=== PATIENT | male | born 1960 | race Caucasian/White ===

== ENCOUNTER → 2017-03-08 | Outpatient (CLI) | payer MEDICARE, MEDICAID ==
[~2017-03-08] MED LIST: BENZ1TAB10 PO; BUDE10.2 IH; HALO10 PO; OLOP15OS OU; OMEP20 PO; RISP2 PO; TIOT185 IH; TRAZ-144 PO
== END | disposition home or self-care (01) ==
LOC: RADPV 08:50
PROVIDERS: ATTEND Internal Medicine Cardiovascular Disease
DX: I07.1 Rheumatic tricuspid insufficiency (principal)
CPT/HCPCS: 93306

== ENCOUNTER 2018-09-20 19:10 | Inpatient (IN) | payer MEDICARE, MEDICAID ==
[~2018-09-20] VITALS: Ht 170.2 cm; Wt 62.0 kg
[~2018-09-20 19:10] MED LIST changes: -TRAZ-144 PO; +TRAZ-219 PO
[2018-09-20 20:42] LABS: BASOPHILS % (AUTO) 0.5 % (0.0-2.0); EOSINOPHILS % (AUTO) 0.3 % (1.0-6.0); HEMATOCRIT 47.1 % (41-53); HEMOGLOBIN 16.3 g/dL (13.5-17.5); LYMPHOCYTES # (AUTO) 1.8 K/uL (1.0-4.8); LYMPHOCYTES % (AUTO) 8.9 % (22.0-44.0); MEAN CORPUSCULAR HEMOGLOBIN 31.4 pg (26.0-34.0); MEAN CORPUSCULAR HGB CONC 34.7 G/dL (31.0-37.0); MEAN CORPUSCULAR VOLUME 91 fL (80-100); MONOCYTES # (AUTO) 1.6 K/uL (0.1-1.0); MONOCYTES % (AUTO) 8.1 % (2.0-9.0); NEUTROPHILS # (AUTO) 16.4 K/uL (1.8-7.7); NEUTROPHILS % (AUTO) 82.2 % (40.0-70.0); PLATELET COUNT (AUTO) 264 K/uL (150-450); RED BLOOD CELL COUNT(AUTO) 5.21 MIL/uL (4.50-5.90); RED CELL DISTRIBUTION WIDTH 12.9 % (11.5-14.5)
[2018-09-20 20:55] LABS: INR 1.1 (0.9-1.1); PROTHROMBIN TIME 11.8 SEC (9.4-11.6)
[2018-09-20 21:00] LABS: CALCIUM, TOTAL 10.1 mg/dL (8.8-10.5); CREATININE 1.27 mg/dL (0.60-1.30); POTASSIUM 3.9 mmol/L (3.5-5.1)
[2018-09-20] MEDS ORDERED: IPRATROPIUM BROMIDE 0.5 MG/2.5 ML NEB SOLUTION NEB ONE (21:15)
[2018-09-20] MEDS ORDERED: ONDANSETRON HCL 4 MG/2 ML VIAL IVP ONE (21:15)
[2018-09-20] MEDS ORDERED: GuaiFENesin/D-METHORPHAN [SUGAR-FREE] 200-20MG/10 ML SYRUP UDCUP PO ONE (21:15)
[2018-09-20] MEDS ORDERED: ALBUTEROL SULFATE 2.5 MG/0.5 ML NEB SOLUTION NEB ONE (21:15)
[2018-09-20 21:25] LABS: BILIRUBIN,TOTAL 1.1 mg/dL (0.1-1.0); TOTAL PROTEIN, SERUM 7.7 g/dL (6.4-8.2)
[2018-09-20 21:39] LABS: INFLUENZA TYPE A NEGATIVE FOR TYPE A (NEGATIVE); INFLUENZA TYPE B NEGATIVE FOR TYPE B (NEGATIVE)
[2018-09-20] MEDS ORDERED: HALO10 PO (21:41)
[2018-09-20] MEDS ORDERED: OMEP20 PO (21:41)
[2018-09-20] MEDS ORDERED: LORA0.5T2 PO (21:41)
[2018-09-20] MEDS ORDERED: RISP3 PO (21:41)
[2018-09-20] MEDS ORDERED: BENZ1TAB10 PO (21:41)
[2018-09-20] MEDS ORDERED: TRAZ-219 PO (21:41)
[2018-09-20] MEDS ORDERED: ALBUTEROL SULFATE 2.5 MG/0.5 ML NEB SOLUTION NEB PRN (22:30)
[2018-09-20] MEDS ORDERED: AZITHROMYCIN 500 MG/NS 250 ML IV ONE (22:30)
[2018-09-20] MEDS ORDERED: ONDANSETRON HCL 4 MG/2 ML VIAL IVP PRN ×2 (22:30)
[2018-09-20] MEDS ORDERED: BISACODYL 10 MG RECTAL RECTAL SUPPOSITORY PR PRN (22:30)
[2018-09-20] MEDS ORDERED: 0.9% SODIUM CHLORIDE 10 ML SYRINGE IVP PRN (22:30)
[2018-09-20] MEDS ORDERED: ACETAMINOPHEN 325 MG TABLET PO PRN ×2 (22:30)
[2018-09-20] MEDS ORDERED: LORazepam 0.5 MG TABLET PO PRN (22:30)
[2018-09-20] MEDS ORDERED: MAGNESIUM HYDROXIDE SUSPENSION 30 ML UDCUP PO PRN (22:30)
[2018-09-20] MEDS ORDERED: CefTRIAXone 1 GM/DEXTROSE 50 ML IV ONE (22:30)
[2018-09-20] MEDS ORDERED: POTASSIUM CHL 20 MEQ/D5-0.45NS 1,000 ML IV ONE (22:30)
[2018-09-20] MEDS ORDERED: IPRATROPIUM BROMIDE 0.5 MG/2.5 ML NEB SOLUTION NEB PRN (22:30)
[2018-09-20] MEDS ORDERED: ALBUTEROL SULFATE 2.5 MG/0.5 ML NEB SOLUTION NEB SCH (23:00)
[2018-09-20] MEDS ORDERED: IPRATROPIUM BROMIDE 0.5 MG/2.5 ML NEB SOLUTION NEB SCH (23:00)
[2018-09-21 00:08] VITALS: BP 132/67
[2018-09-21 04:35] VITALS: BP 129/75
[2018-09-21] MEDS ORDERED: PNEUMOCOCCAL VACCINE POLYVALENT 0.5 ML VIAL [PPSV23] IM ONE (06:30)
[2018-09-21 07:44] LABS: BASOPHILS % (AUTO) 0.9 % (0.0-2.0); EOSINOPHILS % (AUTO) 0.6 % (1.0-6.0); HEMATOCRIT 43.5 % (41-53); HEMOGLOBIN 14.8 g/dL (13.5-17.5); LYMPHOCYTES % (AUTO) 12.2 % (22.0-44.0); MEAN CORPUSCULAR HEMOGLOBIN 31.5 pg (26.0-34.0); MEAN CORPUSCULAR HGB CONC 34.1 G/dL (31.0-37.0); MEAN CORPUSCULAR VOLUME 92 fL (80-100); MONOCYTES # (AUTO) 1.5 K/uL (0.1-1.0); MONOCYTES % (AUTO) 9.6 % (2.0-9.0); NEUTROPHILS # (AUTO) 12.3 K/uL (1.8-7.7); NEUTROPHILS % (AUTO) 76.7 % (40.0-70.0); PLATELET COUNT (AUTO) 206 K/uL (150-450); RED BLOOD CELL COUNT(AUTO) 4.71 MIL/uL (4.50-5.90)
[2018-09-21 08:07] VITALS: BP 119/76
[2018-09-21 08:08] LABS: HEMOGLOBIN A1C 5.6 % (4.5-6.2)
[2018-09-21] MEDS: OMEPRAZOLE 20 MG CAPSULE PO SCH (08:34)
[2018-09-21] MEDS: ENOXAPARIN SODIUM 40 MG/0.4 ML PF SYRINGE SQ SCH (08:35)
[2018-09-21 09:28] LABS: ALANINE AMINOTRANSFERASE 19 U/L (12-78); ALBUMIN 3.4 g/dL (3.4-5.0); ALKALINE PHOSPHATASE 84 U/L (46-116); ANION GAP 9 mmol/L (8-16); ASPARTATE AMINOTRANSFERASE 16 U/L (15-37); BILIRUBIN,TOTAL 0.7 mg/dL (0.1-1.0); CALCIUM, TOTAL 8.9 mg/dL (8.8-10.5); CARBON DIOXIDE 30 mmol/L (22-29); CHLORIDE 99 mmol/L (98-107); CHOL/HDL RATIO 2.9 (4.2-7.3); CHOLESTEROL 122 mg/dL (131-200); CREATINE KINASE, TOTAL ONLY 94 U/L (39-308); CREATININE 0.93 mg/dL (0.60-1.30); FREE T4 (FREE THYROXINE) 0.95 ng/dL (0.76-1.46); GLOMERULAR FILTR. RATE CALC > 60 mL/min (>60); GLUCOSE,RANDOM 133 mg/dL (70-110); HDL CHOLESTEROL 42 mg/dL (40-60); LDL CHOL (CALC.) 62 mg/dL (0-130); POTASSIUM 3.8 mmol/L (3.5-5.1); SODIUM SERUM 138 mmol/L (136-145); TOTAL PROTEIN, SERUM 6.8 g/dL (6.4-8.2); TRIGLYCERIDES 88 mg/dL (15-150); UREA NITROGEN, BLOOD 24 mg/dL (7-18)
[2018-09-21] MEDS: TraZODone HCL 50 MG TABLET PO SCH (11:22)
[2018-09-21] MEDS: HALOPERIDOL 10 MG TABLET PO SCH (11:22)
[2018-09-21] MEDS: RisperiDONE 3 MG TABLET PO SCH (11:22)
[2018-09-21 11:28] VITALS: BP 119/74
[2018-09-21 16:00] VITALS: BP 124/64
[2018-09-21 19:59] VITALS: BP 93/61
[2018-09-21] MEDS: BENZTROPINE MESYLATE 1 MG TABLET PO SCH (20:09)
[2018-09-21] MEDS: CefTRIAXone 1 GM/DEXTROSE 50 ML IV SCH (21:11)
[2018-09-21] MEDS ORDERED: SODIUM CHLORIDE 0.9% 500 ML IV ONE (21:42)
[2018-09-21] MEDS: AZITHROMYCIN 500 MG/NS 250 ML IV SCH (22:06)
[2018-09-22] VITALS (7 sets, daily range): BP systolic 102–132; BP diastolic 62–91
[2018-09-22] MEDS: HALOPERIDOL 10 MG TABLET PO SCH (08:29)
[2018-09-22] MEDS: OMEPRAZOLE 20 MG CAPSULE PO SCH (08:29)
[2018-09-22] MEDS: RisperiDONE 3 MG TABLET PO SCH (08:29)
[2018-09-22] MEDS: ENOXAPARIN SODIUM 40 MG/0.4 ML PF SYRINGE SQ SCH (08:30)
[2018-09-22] MEDS: TraZODone HCL 50 MG TABLET PO SCH (08:32)
[2018-09-22 09:29] LABS: BASOPHILS % (AUTO) 0.7 % (0.0-2.0); EOSINOPHILS % (AUTO) 2.2 % (1.0-6.0); HEMATOCRIT 39.6 % (41-53); HEMOGLOBIN 13.6 g/dL (13.5-17.5); LYMPHOCYTES # (AUTO) 1.6 K/uL (1.0-4.8); LYMPHOCYTES % (AUTO) 17.8 % (22.0-44.0); MEAN CORPUSCULAR HEMOGLOBIN 31.6 pg (26.0-34.0); MEAN CORPUSCULAR HGB CONC 34.3 G/dL (31.0-37.0); MEAN CORPUSCULAR VOLUME 92 fL (80-100); MONOCYTES # (AUTO) 0.6 K/uL (0.1-1.0); MONOCYTES % (AUTO) 7.1 % (2.0-9.0); NEUTROPHILS # (AUTO) 6.6 K/uL (1.8-7.7); NEUTROPHILS % (AUTO) 72.2 % (40.0-70.0); PLATELET COUNT (AUTO) 171 K/uL (150-450); RED BLOOD CELL COUNT(AUTO) 4.29 MIL/uL (4.50-5.90); RED CELL DISTRIBUTION WIDTH 12.8 % (11.5-14.5)
[2018-09-22 09:43] LABS: ANION GAP 8 mmol/L (8-16); CALCIUM, TOTAL 9.3 mg/dL (8.8-10.5); CARBON DIOXIDE 29 mmol/L (22-29); CHLORIDE 101 mmol/L (98-107); CREATININE 0.82 mg/dL (0.60-1.30); GLOMERULAR FILTR. RATE CALC > 60 mL/min (>60); GLUCOSE,RANDOM 138 mg/dL (70-110); POTASSIUM 3.2 mmol/L (3.5-5.1); SODIUM SERUM 138 mmol/L (136-145); UREA NITROGEN, BLOOD 18 mg/dL (7-18)
[2018-09-22] MEDS ORDERED: POTASSIUM CHL 10 MEQ/WATER 50 ML IV PRN (11:00)
[2018-09-22] MEDS: POTASSIUM CHLORIDE 20 MEQ ER TABLET PO PRN (14:19)
[2018-09-22] MEDS ORDERED: 0.9% SODIUM CHLORIDE 5 ML NEB SOLUTION NEB ONE ×2 (15:22→15:43)
[2018-09-22] MEDS: AMINO ACIDS/PROTEIN HYDROLYS 30 ML TUBE PO SCH (18:00)
[2018-09-22] MEDS: CefTRIAXone 1 GM/DEXTROSE 50 ML IV SCH (21:41)
[2018-09-22] MEDS: BENZTROPINE MESYLATE 1 MG TABLET PO SCH (21:43)
[2018-09-22] MEDS: AZITHROMYCIN 500 MG/NS 250 ML IV SCH (22:50)
[2018-09-23] MEDS: POTASSIUM CHLORIDE 20 MEQ ER TABLET PO PRN (00:20)
[2018-09-23 04:17] VITALS: BP 123/76
[2018-09-23] MEDS: AMINO ACIDS/PROTEIN HYDROLYS 30 ML TUBE PO SCH ×2 (08:00→18:00)
[2018-09-23 08:09] VITALS: BP 127/76
[2018-09-23] MEDS: OMEPRAZOLE 20 MG CAPSULE PO SCH (08:28)
[2018-09-23] MEDS: TraZODone HCL 50 MG TABLET PO SCH (08:28)
[2018-09-23] MEDS: RisperiDONE 3 MG TABLET PO SCH (08:28)
[2018-09-23] MEDS: HALOPERIDOL 10 MG TABLET PO SCH (08:28)
[2018-09-23] MEDS: ENOXAPARIN SODIUM 40 MG/0.4 ML PF SYRINGE SQ SCH (08:29)
[2018-09-23 08:42] LABS: BASOPHILS % (AUTO) 0.9 % (0.0-2.0); EOSINOPHILS % (AUTO) 3.3 % (1.0-6.0); HEMATOCRIT 37.2 % (41-53); HEMOGLOBIN 12.9 g/dL (13.5-17.5); LYMPHOCYTES # (AUTO) 1.3 K/uL (1.0-4.8); LYMPHOCYTES % (AUTO) 19.3 % (22.0-44.0); MEAN CORPUSCULAR HEMOGLOBIN 32.1 pg (26.0-34.0); MEAN CORPUSCULAR HGB CONC 34.6 G/dL (31.0-37.0); MEAN CORPUSCULAR VOLUME 93 fL (80-100); MONOCYTES # (AUTO) 0.5 K/uL (0.1-1.0); MONOCYTES % (AUTO) 7.1 % (2.0-9.0); NEUTROPHILS # (AUTO) 4.7 K/uL (1.8-7.7); NEUTROPHILS % (AUTO) 69.4 % (40.0-70.0); PLATELET COUNT (AUTO) 165 K/uL (150-450); RED BLOOD CELL COUNT(AUTO) 4.01 MIL/uL (4.50-5.90); RED CELL DISTRIBUTION WIDTH 12.7 % (11.5-14.5)
[2018-09-23 08:50] LABS: ANION GAP 7 mmol/L (8-16); CALCIUM, TOTAL 8.8 mg/dL (8.8-10.5); CARBON DIOXIDE 27 mmol/L (22-29); CHLORIDE 105 mmol/L (98-107); CREATININE 0.65 mg/dL (0.60-1.30); GLOMERULAR FILTR. RATE CALC > 60 mL/min (>60); GLUCOSE,RANDOM 103 mg/dL (70-110); POTASSIUM 3.6 mmol/L (3.5-5.1); SODIUM SERUM 139 mmol/L (136-145); UREA NITROGEN, BLOOD 15 mg/dL (7-18)
[2018-09-23 11:22] VITALS: BP 118/80
[2018-09-23 15:44] VITALS: BP 133/88
[2018-09-23 20:11] VITALS: BP 146/94
[2018-09-23] MEDS: CefTRIAXone 1 GM/DEXTROSE 50 ML IV SCH (21:06)
[2018-09-23] MEDS: AZITHROMYCIN 500 MG/NS 250 ML IV SCH (21:06)
[2018-09-23] MEDS: BENZTROPINE MESYLATE 1 MG TABLET PO SCH (21:06)
[2018-09-23 23:42] VITALS: BP 135/87
[2018-09-24 04:00] VITALS: BP 137/92
[2018-09-24] MEDS: AMINO ACIDS/PROTEIN HYDROLYS 30 ML TUBE PO SCH ×2 (08:00→18:00)
[2018-09-24] MEDS: ENOXAPARIN SODIUM 40 MG/0.4 ML PF SYRINGE SQ SCH (08:06)
[2018-09-24] MEDS: RisperiDONE 3 MG TABLET PO SCH (08:06)
[2018-09-24] MEDS: HALOPERIDOL 10 MG TABLET PO SCH (08:06)
[2018-09-24] MEDS: OMEPRAZOLE 20 MG CAPSULE PO SCH (08:06)
[2018-09-24] MEDS: TraZODone HCL 50 MG TABLET PO SCH (08:07)
[2018-09-24 08:09] VITALS: BP 139/87
[2018-09-24] MEDS ORDERED: LEVO500 PO (10:23)
[2018-09-24] MEDS ORDERED: LEVO500P13 IV (10:23)
[2018-09-24 12:11] VITALS: BP 122/86
[2018-09-24 16:30] VITALS: BP 123/88
== END 2018-09-24 19:40 | disposition home or self-care (01) | DRG 871 ==
LOC: EMS 19:11 → 6N 22:54
PROVIDERS: ADMIT Internal Medicine Geriatric Medicine; ATTEND Internal Medicine Geriatric Medicine
DX: A41.9 Sepsis, unspecified organism (principal); J18.0 Bronchopneumonia, unspecified organism; J44.0 Chronic obstructive pulmonary disease with (acute) lower respiratory infection; K21.9 Gastro-esophageal reflux disease without esophagitis; B19.20 Unspecified viral hepatitis C without hepatic coma; F32.9 Major depressive disorder, single episode, unspecified; E87.6 Hypokalemia; D64.9 Anemia, unspecified; R91.1 Solitary pulmonary nodule; I70.0 Atherosclerosis of aorta; Z79.899 Other long term (current) drug therapy; Z82.49 Family history of ischemic heart disease and other diseases of the circulatory system; Z87.891 Personal history of nicotine dependence; F25.9 Schizoaffective disorder, unspecified
CPT/HCPCS: 71250; 80074; 83036; 83605; 83735; 84132; 84145; 84439; 84443; 85379; 87040; 87070; 87804; 90686; 90732; 93005; 93306; 93970; 94640; 96365; 96368; 96375; G0378; J0456; J0696; J1650; J2405; J3480; J7040

== ENCOUNTER 2019-07-17 17:40 | Inpatient (IN) | payer MEDICARE, MEDICAID ==
[~2019-07-17] VITALS: Ht 170.2 cm; Wt 51.3 kg
[~2019-07-17 17:40] MED LIST changes: -BUDE10.2 IH; +LORA-999 PO; -OLOP15OS OU; -RISP2 PO; +RISP3 PO; -TIOT185 IH; -TRAZ-219 PO; +TRAZ-252 PO
[2019-07-17] MEDS ORDERED: HALOPERIDOL 5 MG TABLET PO PRN (19:15)
[2019-07-17] MEDS ORDERED: ZOLPIDEM TARTRATE 10 MG TABLET PO PRN (19:15)
[2019-07-17] MEDS ORDERED: LORazepam 2 MG TABLET PO PRN (19:15)
[2019-07-17 19:35] LABS: ANION GAP 7 mmol/L (8-16); CALCIUM, TOTAL 8.8 mg/dL (8.8-10.5); CARBON DIOXIDE 28 mmol/L (22-29); CHLORIDE 103 mmol/L (98-107); CREATININE 0.77 mg/dL (0.60-1.30); GLOMERULAR FILTR. RATE CALC > 60 mL/min (>60); GLUCOSE,RANDOM 112 mg/dL (70-110); POTASSIUM 4.4 mmol/L (3.5-5.1); SODIUM SERUM 138 mmol/L (136-145); UREA NITROGEN, BLOOD 25 mg/dL (7-18)
[2019-07-17 19:37] LABS: BASOPHILS % (AUTO) 0.8 % (0.0-2.0); EOSINOPHILS % (AUTO) 4.7 % (1.0-6.0); HEMATOCRIT 43.8 % (41-53); HEMOGLOBIN 14.9 g/dL (13.5-17.5); LYMPHOCYTES # (AUTO) 1.8 K/uL (1.0-4.8); LYMPHOCYTES % (AUTO) 23.8 % (22.0-44.0); MEAN CORPUSCULAR HEMOGLOBIN 31.4 pg (26.0-34.0); MEAN CORPUSCULAR VOLUME 92 fL (80-100); MONOCYTES # (AUTO) 0.6 K/uL (0.1-1.0); MONOCYTES % (AUTO) 7.9 % (2.0-9.0); NEUTROPHILS # (AUTO) 4.7 K/uL (1.8-7.7); NEUTROPHILS % (AUTO) 62.8 % (40.0-70.0); RED BLOOD CELL COUNT(AUTO) 4.75 MIL/uL (4.50-5.90); RED CELL DISTRIBUTION WIDTH 13.3 % (11.5-14.5)
[2019-07-17 19:42] LABS: ALANINE AMINOTRANSFERASE 18 U/L (12-78); ALBUMIN 3.2 g/dL (3.4-5.0); ALKALINE PHOSPHATASE 108 U/L (46-116); ASPARTATE AMINOTRANSFERASE 14 U/L (15-37); BILIRUBIN,TOTAL 0.3 mg/dL (0.1-1.0); TOTAL PROTEIN, SERUM 6.7 g/dL (6.4-8.2)
[2019-07-17 20:27] LABS: PLATELET COUNT (AUTO) 173 K/uL (150-450); PLATELET MORPHOLOGY COMMENT NORMAL
[2019-07-17 21:35] VITALS: BP 94/61
[2019-07-17] MEDS ORDERED: ACETAMINOPHEN 325 MG TABLET PO PRN (22:15)
[2019-07-17] MEDS ORDERED: INFLUENZA VIRUS VACCINE QVS 2019-20 (3YR+)/PF 60 MCG/0.5 ML SYRINGE IM ONE (23:45)
[2019-07-18] MEDS: OMEPRAZOLE 20 MG CAPSULE PO SCH (08:10)
[2019-07-18 08:29] LABS: CHOL/HDL RATIO 3.1 (4.2-7.3)
[2019-07-18 08:40] VITALS: BP 122/79
[2019-07-18] MEDS: MULTIVITAMINS, THERAPEUTIC TABLET PO SCH (13:51)
[2019-07-18 17:39] VITALS: BP 145/100
[2019-07-18] MEDS: SERTRALINE HCL 50 MG TABLET PO SCH (20:32)
[2019-07-18] MEDS: RisperiDONE 1 MG TABLET PO SCH (20:33)
[2019-07-19 01:15] VITALS: BP 96/65
[2019-07-19 06:59] LABS: HEMOGLOBIN A1C 5.4 % (4.5-6.2)
[2019-07-19 07:24] LABS: MAGNESIUM 1.9 mg/dL (1.80-2.40)
[2019-07-19] MEDS: MULTIVITAMINS, THERAPEUTIC TABLET PO SCH (08:08)
[2019-07-19] MEDS: OMEPRAZOLE 20 MG CAPSULE PO SCH (08:08)
[2019-07-19 08:33] VITALS: BP 106/69
[2019-07-19 19:10] VITALS: BP 127/84
[2019-07-19] MEDS: RisperiDONE 1 MG TABLET PO SCH (20:41)
[2019-07-19] MEDS: SERTRALINE HCL 50 MG TABLET PO SCH (20:41)
[2019-07-20 04:09] VITALS: BP 109/66
[2019-07-20 09:00] VITALS: BP 122/74
[2019-07-20] MEDS: OMEPRAZOLE 20 MG CAPSULE PO SCH (09:20)
[2019-07-20] MEDS: MULTIVITAMINS, THERAPEUTIC TABLET PO SCH (09:20)
[2019-07-20 16:06] VITALS: BP 138/96
[2019-07-20] MEDS: RisperiDONE 2 MG TABLET PO SCH (20:23)
[2019-07-20] MEDS: SERTRALINE HCL 50 MG TABLET PO SCH (20:23)
[2019-07-21] MEDS: OMEPRAZOLE 20 MG CAPSULE PO SCH (08:42)
[2019-07-21] MEDS: MULTIVITAMINS, THERAPEUTIC TABLET PO SCH (08:42)
[2019-07-21 09:00] VITALS: BP 118/82
[2019-07-21 17:03] VITALS: BP 111/72
[2019-07-21] MEDS: RisperiDONE 2 MG TABLET PO SCH (20:16)
[2019-07-21] MEDS: SERTRALINE HCL 50 MG TABLET PO SCH (20:16)
[2019-07-22] MEDS: MULTIVITAMINS, THERAPEUTIC TABLET PO SCH (08:17)
[2019-07-22] MEDS: OMEPRAZOLE 20 MG CAPSULE PO SCH (08:18)
[2019-07-22 09:58] VITALS: BP 107/72
[2019-07-22 16:33] VITALS: BP 101/77
[2019-07-22] MEDS: RisperiDONE 2 MG TABLET PO SCH (21:16)
[2019-07-22] MEDS: SERTRALINE HCL 100 MG TABLET PO SCH (21:16)
[2019-07-23 08:15] VITALS: BP 130/73
[2019-07-23] MEDS: MULTIVITAMINS, THERAPEUTIC TABLET PO SCH (08:36)
[2019-07-23] MEDS: OMEPRAZOLE 20 MG CAPSULE PO SCH (08:37)
[2019-07-23] MEDS: SERTRALINE HCL 100 MG TABLET PO SCH (20:42)
[2019-07-23] MEDS: RisperiDONE 2 MG TABLET PO SCH (20:43)
[2019-07-23 21:18] VITALS: BP 123/77
[2019-07-24] MEDS: MULTIVITAMINS, THERAPEUTIC TABLET PO SCH (08:12)
[2019-07-24] MEDS: OMEPRAZOLE 20 MG CAPSULE PO SCH (08:13)
[2019-07-24 10:38] VITALS: BP 122/87
[2019-07-24] MEDS ORDERED: SERT100T12 PO (14:57)
[2019-07-24] MEDS ORDERED: RISP2 PO (14:57)
[2019-07-24] MEDS ORDERED: OMEP10SU2 PO (14:59)
[2019-07-24] MEDS ORDERED: OMEP20TA2 PO (15:02)
[2019-07-24 20:14] VITALS: BP 135/87
[2019-07-24] MEDS: SERTRALINE HCL 100 MG TABLET PO SCH (20:26)
[2019-07-24] MEDS: RisperiDONE 2 MG TABLET PO SCH (20:26)
[2019-07-25] MEDS: MULTIVITAMINS, THERAPEUTIC TABLET PO SCH (08:10)
[2019-07-25] MEDS: OMEPRAZOLE 20 MG CAPSULE PO SCH (08:10)
[2019-07-25 09:03] VITALS: BP 105/55
[2019-07-25 15:50] VITALS: BP 116/70
[2019-07-25] MEDS: SERTRALINE HCL 100 MG TABLET PO SCH (20:39)
[2019-07-25] MEDS: RisperiDONE 2 MG TABLET PO SCH (20:39)
[2019-07-26 01:29] VITALS: BP 109/65
[2019-07-26] MEDS: OMEPRAZOLE 20 MG CAPSULE PO SCH (08:06)
[2019-07-26] MEDS: MULTIVITAMINS, THERAPEUTIC TABLET PO SCH (08:06)
[2019-07-26 12:05] VITALS: BP 132/75
== END 2019-07-26 17:20 | disposition home or self-care (01) | DRG 885 ==
LOC: EMS 17:41 → 3EX 20:00
PROVIDERS: ADMIT Psychiatry & Neurology Psychiatry; ATTEND Psychiatry & Neurology Psychiatry
DX: F20.0 Paranoid schizophrenia (principal); B19.20 Unspecified viral hepatitis C without hepatic coma; F32.9 Major depressive disorder, single episode, unspecified; J44.9 Chronic obstructive pulmonary disease, unspecified; K21.9 Gastro-esophageal reflux disease without esophagitis; Z87.891 Personal history of nicotine dependence
CPT/HCPCS: 71250; 83036; 83735; 84100; 93306; G0378; G0480

== ENCOUNTER 2019-07-30 17:27 | Inpatient (IN) | payer MEDICARE, MEDICAID ==
[~2019-07-30] VITALS: Ht 170.2 cm; Wt 55.6 kg
[~2019-07-30 17:27] MED LIST changes: -BENZ1TAB10 PO; -HALO10 PO; -LORA-999 PO; -OMEP20 PO; +OMEP20TA2 PO; +RISP2 PO; -RISP3 PO; +SERT100T12 PO; -TRAZ-252 PO
[2019-07-30] MEDS ORDERED: HALOPERIDOL 5 MG TABLET PO PRN (18:00)
[2019-07-30] MEDS ORDERED: LORazepam 2 MG TABLET PO PRN (18:00)
[2019-07-30] MEDS ORDERED: ZOLPIDEM TARTRATE 10 MG TABLET PO PRN (18:00)
[2019-07-30] MEDS ORDERED: INFLUENZA VIRUS VACCINE QVS 2019-20 (3YR+)/PF 60 MCG/0.5 ML SYRINGE IM ONE (18:45)
[2019-07-30] MEDS ORDERED: PNEUMOCOCCAL VACCINE POLYVALENT 0.5 ML VIAL [PPSV23] IM ONE (18:45)
[2019-07-30 18:50] VITALS: BP 100/56
[2019-07-31 05:46] VITALS: BP 100/69
[2019-07-31] MEDS: OMEPRAZOLE 20 MG CAPSULE PO SCH (08:37)
[2019-07-31] MEDS: RisperiDONE 3 MG TABLET PO SCH ×2 (08:37→16:50)
[2019-07-31 08:49] LABS: BASOPHILS % (AUTO) 0.6 % (0.0-2.0); EOSINOPHILS % (AUTO) 2.3 % (1.0-6.0); HEMATOCRIT 44.5 % (41-53); HEMOGLOBIN 15.2 g/dL (13.5-17.5); LYMPHOCYTES # (AUTO) 1.3 K/uL (1.0-4.8); LYMPHOCYTES % (AUTO) 23.6 % (22.0-44.0); MEAN CORPUSCULAR HEMOGLOBIN 31.7 pg (26.0-34.0); MEAN CORPUSCULAR HGB CONC 34.2 G/dL (31.0-37.0); MEAN CORPUSCULAR VOLUME 93 fL (80-100); MONOCYTES # (AUTO) 0.3 K/uL (0.1-1.0); MONOCYTES % (AUTO) 5.6 % (2.0-9.0); NEUTROPHILS # (AUTO) 3.7 K/uL (1.8-7.7); NEUTROPHILS % (AUTO) 67.9 % (40.0-70.0); PLATELET COUNT (AUTO) 176 K/uL (150-450); RED CELL DISTRIBUTION WIDTH 13.3 % (11.5-14.5)
[2019-07-31 09:19] LABS: HEMOGLOBIN A1C 5.4 % (4.5-6.2)
[2019-07-31 09:45] LABS: ALANINE AMINOTRANSFERASE 13 U/L (12-78); ALBUMIN 3.7 g/dL (3.4-5.0); ALKALINE PHOSPHATASE 112 U/L (46-116); ANION GAP 6 mmol/L (8-16); ASPARTATE AMINOTRANSFERASE 9 U/L (15-37); BILIRUBIN,TOTAL 0.4 mg/dL (0.1-1.0); CARBON DIOXIDE 31 mmol/L (22-29); CHLORIDE 105 mmol/L (98-107); CHOL/HDL RATIO 3.8 (4.2-7.3); CHOLESTEROL 188 mg/dL (131-200); CREATININE 0.83 mg/dL (0.60-1.30); GLOMERULAR FILTR. RATE CALC > 60 mL/min (>60); GLUCOSE,RANDOM 102 mg/dL (70-110); HDL CHOLESTEROL 50 mg/dL (40-60); LDL CHOL (CALC.) 120 mg/dL (0-130); POTASSIUM 4.2 mmol/L (3.5-5.1); SODIUM SERUM 142 mmol/L (136-145); THYROID STIMULATING HORMONE 3.54 uIU/mL (0.36-3.74); TOTAL PROTEIN, SERUM 7.4 g/dL (6.4-8.2); TRIGLYCERIDES 91 mg/dL (15-150)
[2019-07-31 09:58] LABS: UREA NITROGEN, BLOOD 14 mg/dL (7-18)
[2019-07-31 10:51] VITALS: BP 101/61
[2019-07-31 16:29] VITALS: BP 92/61
[2019-07-31] MEDS: HALOPERIDOL 10 MG TABLET PO SCH (20:16)
[2019-07-31] MEDS: LORazepam 0.5 MG TABLET PO SCH (20:16)
[2019-07-31] MEDS: TraZODone HCL 100 MG TABLET PO SCH (20:16)
[2019-07-31] MEDS: BENZTROPINE MESYLATE 2 MG TABLET PO SCH (20:16)
[2019-08-01 00:19] VITALS: BP 104/79
[2019-08-01 08:21] VITALS: BP 109/62
[2019-08-01] MEDS: BENZTROPINE MESYLATE 2 MG TABLET PO SCH (08:34)
[2019-08-01] MEDS: OMEPRAZOLE 20 MG CAPSULE PO SCH (08:34)
[2019-08-01 16:01] VITALS: BP 110/67
[2019-08-01] MEDS: LORazepam 0.5 MG TABLET PO SCH (20:04)
[2019-08-01] MEDS: RisperiDONE 3 MG TABLET PO SCH (20:04)
[2019-08-01] MEDS: TraZODone HCL 100 MG TABLET PO SCH (20:04)
[2019-08-01] MEDS: HALOPERIDOL 10 MG TABLET PO SCH (20:04)
[2019-08-02 00:17] VITALS: BP 104/63
[2019-08-02 08:13] VITALS: BP 113/62
[2019-08-02] MEDS: BENZTROPINE MESYLATE 2 MG TABLET PO SCH (08:14)
[2019-08-02] MEDS: OMEPRAZOLE 20 MG CAPSULE PO SCH (08:14)
[2019-08-02 16:05] VITALS: BP 101/74
[2019-08-02] MEDS: RisperiDONE 3 MG TABLET PO SCH (20:06)
[2019-08-02] MEDS: HALOPERIDOL 10 MG TABLET PO SCH (20:06)
[2019-08-02] MEDS: LORazepam 0.5 MG TABLET PO SCH (20:06)
[2019-08-02] MEDS: TraZODone HCL 100 MG TABLET PO SCH (20:06)
[2019-08-03] VITALS (8 sets, daily range): BP systolic 82–109; BP diastolic 60–76
[2019-08-03] MEDS: BENZTROPINE MESYLATE 2 MG TABLET PO SCH (08:18)
[2019-08-03] MEDS: OMEPRAZOLE 20 MG CAPSULE PO SCH (08:18)
[2019-08-03] MEDS: RisperiDONE 3 MG TABLET PO SCH (20:04)
[2019-08-03] MEDS: TraZODone HCL 100 MG TABLET PO SCH (20:10)
[2019-08-03] MEDS: LORazepam 0.5 MG TABLET PO SCH (20:10)
[2019-08-03] MEDS: HALOPERIDOL 10 MG TABLET PO SCH (20:10)
[2019-08-04 03:49] VITALS: BP 115/73
[2019-08-04 07:07] VITALS: BP 107/71
[2019-08-04] MEDS: BENZTROPINE MESYLATE 2 MG TABLET PO SCH (08:23)
[2019-08-04] MEDS: OMEPRAZOLE 20 MG CAPSULE PO SCH (08:23)
[2019-08-04 08:32] VITALS: BP 107/61
[2019-08-04 13:00] VITALS: BP 86/60
[2019-08-04 14:13] VITALS: BP 100/62
[2019-08-04 16:20] VITALS: BP 108/72
[2019-08-04] MEDS: RisperiDONE 3 MG TABLET PO SCH (20:21)
[2019-08-04] MEDS: TraZODone HCL 100 MG TABLET PO SCH (20:21)
[2019-08-04] MEDS: HALOPERIDOL 10 MG TABLET PO SCH (20:22)
[2019-08-05 00:22] VITALS: BP 104/66
[2019-08-05] MEDS: BENZTROPINE MESYLATE 2 MG TABLET PO SCH (08:08)
[2019-08-05] MEDS: OMEPRAZOLE 20 MG CAPSULE PO SCH (08:08)
[2019-08-05 08:54] VITALS: BP 140/79
[2019-08-05 16:13] VITALS: BP 102/71
[2019-08-05] MEDS: TraZODone HCL 100 MG TABLET PO SCH (20:12)
[2019-08-05] MEDS: RisperiDONE 3 MG TABLET PO SCH (20:15)
[2019-08-05] MEDS: HALOPERIDOL 10 MG TABLET PO SCH (20:15)
[2019-08-06 00:15] VITALS: BP 107/62
[2019-08-06] MEDS: BENZTROPINE MESYLATE 2 MG TABLET PO SCH (08:03)
[2019-08-06] MEDS: OMEPRAZOLE 20 MG CAPSULE PO SCH (08:03)
[2019-08-06 08:12] VITALS: BP 103/65
[2019-08-06 16:30] VITALS: BP 100/60
[2019-08-06] MEDS: HALOPERIDOL 10 MG TABLET PO SCH (20:00)
[2019-08-06] MEDS: TraZODone HCL 100 MG TABLET PO SCH (20:00)
[2019-08-06] MEDS: RisperiDONE 3 MG TABLET PO SCH (20:00)
[2019-08-07 00:20] VITALS: BP 110/62
[2019-08-07] MEDS: BENZTROPINE MESYLATE 2 MG TABLET PO SCH (08:07)
[2019-08-07] MEDS: OMEPRAZOLE 20 MG CAPSULE PO SCH (08:07)
[2019-08-07 08:35] VITALS: BP 96/66
[2019-08-07 16:05] VITALS: BP 116/65
[2019-08-07] MEDS: HALOPERIDOL 10 MG TABLET PO SCH (20:09)
[2019-08-07] MEDS: RisperiDONE 3 MG TABLET PO SCH (20:10)
[2019-08-08 01:47] VITALS: BP 106/77
[2019-08-08 08:39] VITALS: BP 104/67
[2019-08-08] MEDS: OMEPRAZOLE 20 MG CAPSULE PO SCH (08:40)
[2019-08-08] MEDS: BENZTROPINE MESYLATE 2 MG TABLET PO SCH (08:40)
[2019-08-08] MEDS: CITALOPRAM HYDROBROMIDE 20 MG TABLET PO SCH (08:40)
[2019-08-08 17:01] VITALS: BP 99/62
[2019-08-08] MEDS: RisperiDONE 3 MG TABLET PO SCH (20:51)
[2019-08-08] MEDS: HALOPERIDOL 10 MG TABLET PO SCH (20:51)
[2019-08-09 00:01] VITALS: BP 127/83
[2019-08-09] MEDS: BENZTROPINE MESYLATE 2 MG TABLET PO SCH (08:28)
[2019-08-09] MEDS: OMEPRAZOLE 20 MG CAPSULE PO SCH (08:28)
[2019-08-09] MEDS: CITALOPRAM HYDROBROMIDE 20 MG TABLET PO SCH (08:28)
[2019-08-09 08:34] VITALS: BP 108/66
[2019-08-09 15:37] VITALS: BP 108/68
[2019-08-09 19:22] VITALS: BP 108/88
[2019-08-09] MEDS: HALOPERIDOL 10 MG TABLET PO SCH (20:04)
[2019-08-09] MEDS: RisperiDONE 3 MG TABLET PO SCH (20:08)
[2019-08-09 23:37] VITALS: BP 102/60
[2019-08-10] VITALS: BP 102/60
[2019-08-10 02:08] VITALS: BP 102/60
[2019-08-10 08:13] VITALS: BP 100/66
[2019-08-10] MEDS: BENZTROPINE MESYLATE 2 MG TABLET PO SCH (08:33)
[2019-08-10] MEDS: CITALOPRAM HYDROBROMIDE 20 MG TABLET PO SCH (08:34)
[2019-08-10] MEDS: OMEPRAZOLE 20 MG CAPSULE PO SCH (08:34)
[2019-08-10 16:06] VITALS: BP 106/68
[2019-08-10] MEDS: HALOPERIDOL 10 MG TABLET PO SCH (20:04)
[2019-08-10] MEDS: RisperiDONE 3 MG TABLET PO SCH (20:04)
[2019-08-11 06:46] VITALS: BP 98/73
[2019-08-11] MEDS: BENZTROPINE MESYLATE 2 MG TABLET PO SCH (08:13)
[2019-08-11] MEDS: CITALOPRAM HYDROBROMIDE 20 MG TABLET PO SCH (08:13)
[2019-08-11] MEDS: OMEPRAZOLE 20 MG CAPSULE PO SCH (08:13)
[2019-08-11 08:34] VITALS: BP 100/70
[2019-08-11 16:01] VITALS: BP 109/64
[2019-08-11] MEDS: RisperiDONE 3 MG TABLET PO SCH (20:18)
[2019-08-11] MEDS: HALOPERIDOL 10 MG TABLET PO SCH (20:18)
[2019-08-12 04:22] VITALS: BP 100/63
[2019-08-12] MEDS: BENZTROPINE MESYLATE 2 MG TABLET PO SCH (08:27)
[2019-08-12] MEDS: OMEPRAZOLE 20 MG CAPSULE PO SCH (08:27)
[2019-08-12] MEDS: CITALOPRAM HYDROBROMIDE 20 MG TABLET PO SCH (08:27)
[2019-08-12] MEDS ORDERED: BENZ2TAB10 PO (08:58)
[2019-08-12] MEDS ORDERED: CITA20TA17 PO (08:58)
[2019-08-12] MEDS ORDERED: HALO10TA3 PO (08:58)
[2019-08-12 09:50] VITALS: BP 119/63
== END 2019-08-12 14:16 | disposition home or self-care (01) | DRG 885 ==
LOC: B2X 18:31 → B2S 08-01 13:03
PROVIDERS: ADMIT Psychiatry & Neurology Psychiatry; ATTEND Psychiatry & Neurology Psychiatry
DX: F20.0 Paranoid schizophrenia (principal); E46 Unspecified protein-calorie malnutrition; J44.9 Chronic obstructive pulmonary disease, unspecified; K21.9 Gastro-esophageal reflux disease without esophagitis; F10.10 Alcohol abuse, uncomplicated; B19.20 Unspecified viral hepatitis C without hepatic coma; I95.9 Hypotension, unspecified; Z23 Encounter for immunization
CPT/HCPCS: 83036; 84439; 84443; 87081; 90686; 90732

== ENCOUNTER 2019-08-03 23:20 | Emergency (ER) | payer MEDICARE, MEDICAID ==
[~2019-08-03] VITALS: Ht 167.6 cm; Wt 56.7 kg
[2019-08-03] MEDS ORDERED: SODIUM CHLORIDE 0.9% 1,000 ML IV ONE (23:30)
[2019-08-03 23:46] LABS: EOSINOPHILS % (AUTO) 5.4 % (1.0-6.0); HEMATOCRIT 40.4 % (41-53); HEMOGLOBIN 13.6 g/dL (13.5-17.5); LYMPHOCYTES # (AUTO) 1.5 K/uL (1.0-4.8); LYMPHOCYTES % (AUTO) 28.3 % (22.0-44.0); MEAN CORPUSCULAR HEMOGLOBIN 31.1 pg (26.0-34.0); MEAN CORPUSCULAR HGB CONC 33.6 G/dL (31.0-37.0); MEAN CORPUSCULAR VOLUME 93 fL (80-100); MONOCYTES # (AUTO) 0.5 K/uL (0.1-1.0); MONOCYTES % (AUTO) 9.7 % (2.0-9.0); NEUTROPHILS # (AUTO) 2.9 K/uL (1.8-7.7); NEUTROPHILS % (AUTO) 55.6 % (40.0-70.0); PLATELET COUNT (AUTO) 159 K/uL (150-450); RED BLOOD CELL COUNT(AUTO) 4.36 MIL/uL (4.50-5.90); RED CELL DISTRIBUTION WIDTH 13.7 % (11.5-14.5)
[2019-08-04 01:10] LABS: ANION GAP 7 mmol/L (8-16); CARBON DIOXIDE 28 mmol/L (22-29); CHLORIDE 106 mmol/L (98-107); CREATININE 0.78 mg/dL (0.60-1.30); GLOMERULAR FILTR. RATE CALC > 60 mL/min (>60); GLUCOSE,RANDOM 101 mg/dL (70-110); POTASSIUM 4.3 mmol/L (3.5-5.1); SODIUM SERUM 141 mmol/L (136-145); UREA NITROGEN, BLOOD 19 mg/dL (7-18)
[2019-08-04 01:16] LABS: ALANINE AMINOTRANSFERASE 13 U/L (12-78); ALKALINE PHOSPHATASE 95 U/L (46-116); ASPARTATE AMINOTRANSFERASE 11 U/L (15-37); BILIRUBIN,TOTAL 0.2 mg/dL (0.1-1.0); TOTAL PROTEIN, SERUM 6.1 g/dL (6.4-8.2)
[2019-08-04 01:20] VITALS: BP 103/65
== END 2019-08-04 03:02 | disposition home or self-care (01) ==
LOC: EMS 23:20
DX: I95.9 Hypotension, unspecified (principal); J44.9 Chronic obstructive pulmonary disease, unspecified; K21.9 Gastro-esophageal reflux disease without esophagitis; F20.9 Schizophrenia, unspecified; F17.210 Nicotine dependence, cigarettes, uncomplicated; Z88.5 Allergy status to narcotic agent; Z88.6 Allergy status to analgesic agent
CPT/HCPCS: 36415; 80053; 85025; 96360; 99283; 99406; J7030

== ENCOUNTER 2020-01-06 19:24 | Emergency (ER) | payer MEDICARE, MEDICAID ==
[~2020-01-06] VITALS: Ht 170.2 cm; Wt 72.7 kg
[~2020-01-06 19:24] MED LIST changes: +BENZ2TAB10 PO; +CITA20TA17 PO; +HALO10TA3 PO; -SERT100T12 PO
[2020-01-06 22:40] LABS: BASOPHILS % (AUTO) 1.2 % (0.0-2.0); EOSINOPHILS % (AUTO) 1.9 % (1.0-6.0); HEMATOCRIT 45.6 % (41-53); HEMOGLOBIN 14.9 g/dL (13.5-17.5); LYMPHOCYTES # (AUTO) 1.6 K/uL (1.0-4.8); LYMPHOCYTES % (AUTO) 29.4 % (22.0-44.0); MEAN CORPUSCULAR HEMOGLOBIN 30.3 pg (26.0-34.0); MEAN CORPUSCULAR HGB CONC 32.8 G/dL (31.0-37.0); MEAN CORPUSCULAR VOLUME 93 fL (80-100); MONOCYTES # (AUTO) 0.5 K/uL (0.1-1.0); MONOCYTES % (AUTO) 9.6 % (2.0-9.0); NEUTROPHILS # (AUTO) 3.1 K/uL (1.8-7.7); NEUTROPHILS % (AUTO) 57.9 % (40.0-70.0); PLATELET COUNT (AUTO) 151 K/uL (150-450); RED BLOOD CELL COUNT(AUTO) 4.92 MIL/uL (4.50-5.90); RED CELL DISTRIBUTION WIDTH 13.6 % (11.5-14.5)
[2020-01-06 23:13] LABS: ANION GAP 8 mmol/L (8-16); CALCIUM, TOTAL 9.2 mg/dL (8.8-10.5); CARBON DIOXIDE 30 mmol/L (22-29); CHLORIDE 106 mmol/L (98-107); CREATININE 0.73 mg/dL (0.60-1.30); GLOMERULAR FILTR. RATE CALC > 60 mL/min (>60); GLUCOSE,RANDOM 94 mg/dL (70-110); POTASSIUM 4.8 mmol/L (3.5-5.1); SODIUM SERUM 144 mmol/L (136-145); UREA NITROGEN, BLOOD 18 mg/dL (7-18)
[2020-01-06] MEDS ORDERED: HALOPERIDOL 5 MG TABLET PO PRN (23:15)
[2020-01-06] MEDS ORDERED: LORazepam 2 MG TABLET PO PRN (23:15)
[2020-01-06] MEDS ORDERED: ZOLPIDEM TARTRATE 10 MG TABLET PO PRN (23:15)
[2020-01-06 23:20] LABS: ALANINE AMINOTRANSFERASE 24 U/L (12-78); ALBUMIN 3.5 g/dL (3.4-5.0); ALKALINE PHOSPHATASE 95 U/L (46-116); ASPARTATE AMINOTRANSFERASE 15 U/L (15-37); BILIRUBIN,TOTAL 0.5 mg/dL (0.1-1.0); TOTAL PROTEIN, SERUM 6.9 g/dL (6.4-8.2)
[2020-01-07 04:23] LABS: CHOL/HDL RATIO 3.1 (4.2-7.3); CHOLESTEROL 148 mg/dL (131-200); HDL CHOLESTEROL 48 mg/dL (40-60); LDL CHOL (CALC.) 82 mg/dL (0-130); TRIGLYCERIDES 88 mg/dL (15-150)
[2020-01-07 09:56] LABS: BILIRUBIN,URINE NEGATIVE (NEGATIVE); GLUCOSE, URINE (UA) NEGATIVE (NEGATIVE); KETONES,URINE NEGATIVE (NEGATIVE); LEUKOCYTE ESTERASE ,URINE NEGATIVE (NEGATIVE); NITRATE,URINE NEGATIVE (NEGATIVE); OCCULT BLOOD,URINE NEGATIVE (NEGATIVE); PROTEIN,URINE NEGATIVE (NEGATIVE); UROBILINOGEN,URINE 0.2 mg/dL (<=1.0)
[2020-01-07 09:59] LABS: APPEARANCE,URINE CLEAR (CLEAR)
[2020-01-07 10:01] LABS: AMPHET/METH SCREEN,URINE NEGATIVE (NEGATIVE); BARBITURATE SCREEN, URINE NEGATIVE (NEGATIVE); BENZODIAZEPINES SCREEN,URINE NEGATIVE (NEGATIVE); CANNABINOID SCREEN,URINE NEGATIVE (NEGATIVE); COCAINE SCREEN,URINE NEGATIVE (NEGATIVE); METHADONE SCREEN, URINE NEGATIVE (NEGATIVE)
[2020-01-07 10:02] LABS: PHENCYCLIDINE SCREEN,URINE NEGATIVE (NEGATIVE)
[2020-01-07 10:09] LABS: OPIATE SCREEN,URINE NEGATIVE (NEGATIVE)
[2020-01-07 12:33] VITALS: BP 134/71
== END 2020-01-07 13:50 ==
LOC: EMS 19:27
DX: F20.9 Schizophrenia, unspecified (principal); J44.9 Chronic obstructive pulmonary disease, unspecified; Z11.59 Encounter for screening for other viral diseases; Z79.82 Long term (current) use of aspirin; Z88.5 Allergy status to narcotic agent; Z87.891 Personal history of nicotine dependence
CPT/HCPCS: 36415; 80053; 80061; 80307; 81003; 85025; 87635; 99285; G0480

== ENCOUNTER 2020-04-13 13:48 | Emergency (ER) | payer MEDICARE, MEDICAID ==
[~2020-04-13] VITALS: Ht 167.6 cm; Wt 68.2 kg
[~2020-04-13 13:48] MED LIST changes: -RISP2 PO; +RISP2TAB23 PO
[2020-04-13 13:55] VITALS: BP 136/92
[2020-04-13 15:39] LABS: BASOPHILS % (AUTO) 0.8 % (0.0-2.0); EOSINOPHILS % (AUTO) 2.1 % (1.0-6.0); HEMOGLOBIN 14.3 g/dL (13.5-17.5); LYMPHOCYTES # (AUTO) 1.7 K/uL (1.0-4.8); LYMPHOCYTES % (AUTO) 31.3 % (22.0-44.0); MEAN CORPUSCULAR HEMOGLOBIN 31.3 pg (26.0-34.0); MEAN CORPUSCULAR HGB CONC 33.2 G/dL (31.0-37.0); MEAN CORPUSCULAR VOLUME 94 fL (80-100); MONOCYTES # (AUTO) 0.5 K/uL (0.1-1.0); MONOCYTES % (AUTO) 8.6 % (2.0-9.0); NEUTROPHILS # (AUTO) 3.1 K/uL (1.8-7.7); NEUTROPHILS % (AUTO) 57.2 % (40.0-70.0); PLATELET COUNT (AUTO) 175 K/uL (150-450); RED BLOOD CELL COUNT(AUTO) 4.56 MIL/uL (4.50-5.90); RED CELL DISTRIBUTION WIDTH 14.3 % (11.5-14.5)
[2020-04-13 16:11] LABS: ANION GAP 9 mmol/L (8-16); CALCIUM, TOTAL 9.3 mg/dL (8.8-10.5); CARBON DIOXIDE 27 mmol/L (22-29); CHLORIDE 105 mmol/L (98-107); CREATININE 0.84 mg/dL (0.60-1.30); GLOMERULAR FILTR. RATE CALC > 60 mL/min (>60); GLUCOSE,RANDOM 105 mg/dL (70-110); POTASSIUM 3.6 mmol/L (3.5-5.1); SODIUM SERUM 141 mmol/L (136-145); UREA NITROGEN, BLOOD 12 mg/dL (7-18)
[2020-04-13 16:19] LABS: ALANINE AMINOTRANSFERASE 22 U/L (12-78); ALBUMIN 3.9 g/dL (3.4-5.0); ALKALINE PHOSPHATASE 101 U/L (46-116); ASPARTATE AMINOTRANSFERASE 13 U/L (15-37); BILIRUBIN,TOTAL 0.5 mg/dL (0.1-1.0); TOTAL PROTEIN, SERUM 7.5 g/dL (6.4-8.2)
== END 2020-04-13 16:41 | disposition home or self-care (01) ==
LOC: EMS 13:54
DX: F32.9 Major depressive disorder, single episode, unspecified (principal); J44.9 Chronic obstructive pulmonary disease, unspecified; K21.9 Gastro-esophageal reflux disease without esophagitis; F20.9 Schizophrenia, unspecified; Z87.891 Personal history of nicotine dependence; Z88.5 Allergy status to narcotic agent; Z88.6 Allergy status to analgesic agent
CPT/HCPCS: 36415; 80053; 85025; 99284; G0480